=== PATIENT | female | born 1990 | race Caucasian/White ===

== ENCOUNTER 2016-09-30 14:07 | Emergency (ER) | payer MEDICAID ==
[~2016-09-30] VITALS: Ht 152.4 cm; Wt 49.0 kg
[~2016-09-30 14:07] MED LIST: HYDR-3240 PO; IBUP800T PO; OXYC-302 PO
[2016-09-30 14:43] VITALS: BP 124/86
== END 2016-09-30 15:19 | disposition home or self-care (01) ==
LOC: ED 15:00
DX: H66.001 Acute suppurative otitis media without spontaneous rupture of ear drum, right ear (principal)
CPT/HCPCS: 99283

== ENCOUNTER 2016-10-27 18:45 | Emergency (ER) | payer MEDICAID ==
[~2016-10-27] VITALS: Ht 154.9 cm; Wt 51.6 kg
[2016-10-27 18:50] VITALS: BP 121/87
[2016-10-27] MEDS ORDERED: HYDROcodone/APAP 5/325 TABLET PO ONE (19:30)
[2016-10-27] MEDS ORDERED: HYDROcodone/APAP 5/325 TABLET ONE (19:57)
== END 2016-10-27 20:06 | disposition home or self-care (01) ==
LOC: ED 20:00
DX: M26.622 Arthralgia of left temporomandibular joint (principal)
CPT/HCPCS: 99283

== ENCOUNTER 2017-12-31 02:39 | Emergency (ER) | payer MEDICAID ==
[~2017-12-31] VITALS: Ht 154.9 cm; Wt 70.0 kg
[~2017-12-31 02:39] MED LIST changes: +IBUP-1223 PO; -IBUP800T PO
[2017-12-31] MEDS ORDERED: ONDANSETRON 2MG/ML, 2ML ONE (03:20)
[2017-12-31] MEDS ORDERED: MORPHINE SULFATE 4 MG/ML, 1ML ONE (03:21)
[2017-12-31 03:25] LABS: MICROSCOPIC NOT IND
[2017-12-31 03:26] LABS: BASOPHILS # (AUTO) 0.04 x10^3/uL (0-0.1); BASOPHILS % (AUTO) 0 % (0-1); EOSINOPHILS # (AUTO) 0.16 x10^3/uL (0-0.4); EOSINOPHILS % (AUTO) 2 % (1-7); LYMPHOCYTES # (AUTO) 3.55 x10^3/uL (1-3.4); LYMPHOCYTES % (AUTO) 38 % (22-44); MD NO; MEAN CORPUSCULAR HEMOGLOBIN 32.2 pg (27.0-34.8); MEAN CORPUSCULAR HGB CONC 34.7 g/dL (32.4-35.8); MEAN CORPUSCULAR VOLUME 92.7 fL (80-100); MEAN PLATELET VOLUME 6.9 fL (7.4-10.4); MONOCYTES # (AUTO) 0.52 x10^3/uL (0.2-0.8); MONOCYTES % (AUTO) 6 % (2-9); NEUTROPHILS % (AUTO) 54 % (42-75); PLATELET COUNT 359 x10^3/uL (130-400); RED BLOOD COUNT 4.79 x10^6/uL (3.82-5.3); RED CELL DISTRIBUTION WIDTH 13.3 % (9.6-15.2)
[2017-12-31 03:27] LABS: CULTURE INDICATED? NO
[2017-12-31] MEDS ORDERED: MORPHINE SULFATE 4 MG/ML, 1ML IVPush PRN (03:30)
[2017-12-31] MEDS ORDERED: ONDANSETRON 2MG/ML, 2ML IVPush ONE (03:30)
[2017-12-31 03:39] LABS: ALANINE AMINOTRANSFERASE 16 U/L (12-78); ALBUMIN 4.3 g/dL (3.4-5.0); ANION GAP 6 mmol/L (5-15); CALCIUM 8.8 mg/dL (8.5-10.1); CHLORIDE 111 mmol/L (98-107); CREATININE 0.89 mg/dL (0.55-1.02)
[2017-12-31 03:43] LABS: ALKALINE PHOSPHATASE 73 U/L (45-117); TOTAL PROTEIN 7.8 g/dL (6.4-8.2)
[2017-12-31 03:44] LABS: BILIRUBIN,TOTAL 0.5 mg/dL (0.2-1.0)
[2017-12-31 06:20] VITALS: BP 112/72
== END 2017-12-31 06:22 | disposition home or self-care (01) ==
LOC: ED 05:49
DX: R10.30 Lower abdominal pain, unspecified (principal); R10.2 Pelvic and perineal pain
CPT/HCPCS: 36415; 76830; 80053; 81003; 83690; 84703; 85025; 96374; 96375; 99285; J2405

== ENCOUNTER 2018-05-15 07:51 | Emergency (ER) | payer MEDICAID ==
[~2018-05-15] VITALS: Ht 154.9 cm; Wt 66.7 kg
[2018-05-15 08:09] VITALS: BP 106/58
== END 2018-05-15 09:31 | disposition home or self-care (01) ==
LOC: ED 09:19
DX: H57.12 Ocular pain, left eye (principal)
CPT/HCPCS: 99283

== ENCOUNTER 2018-08-30 13:09 | Emergency (ER) | payer MEDICAID ==
[~2018-08-30] VITALS: Ht 154.9 cm; Wt 55.3 kg
[2018-08-30] MEDS ORDERED: KETOROLAC 30 MG/1 ML IM ONE (13:30)
[2018-08-30] MEDS ORDERED: KETOROLAC 30 MG/1 ML ONE (13:44)
--- NOTE | 2018-08-30 14:04 | NUR ---
CXR RESULTS BACK, PT FOR RECHECK.
[2018-08-30 14:58] VITALS: BP 118/74
== END 2018-08-30 15:00 | disposition home or self-care (01) ==
LOC: ED 14:48
DX: R07.89 Other chest pain (principal); F17.200 Nicotine dependence, unspecified, uncomplicated
CPT/HCPCS: 71046; 93005; 96372; 99283; J1885

== ENCOUNTER 2018-10-11 10:18 | Emergency (ER) | payer MEDICAID ==
[~2018-10-11] VITALS: Ht 154.9 cm; Wt 59.0 kg
--- NOTE | 2018-10-11 10:35 | NUR ---
BIB [facility]. C/O right lateral chest pain tender on light palpation after coughing hard. Dx'd with "lung inflammation" 1 month ago. Patient was scheduled for appointment to establish PCP at [facility] today. EKG done. Placed on NIBP, pulse ox and conveyor monitor. Family at bedside. Will continue to monitor.
[2018-10-11] MEDS ORDERED: KETOROLAC 30 MG/1 ML ONE (10:52)
[2018-10-11 11:37] LABS: BASOPHILS # (AUTO) 0.03 x10^3/uL (0-0.1); BASOPHILS % (AUTO) 0 % (0-1); EOSINOPHILS # (AUTO) 0.09 x10^3/uL (0-0.4); EOSINOPHILS % (AUTO) 1 % (1-7); LYMPHOCYTES # (AUTO) 2.71 x10^3/uL (1-3.4); LYMPHOCYTES % (AUTO) 33 % (22-44); MD NO; MEAN CORPUSCULAR HEMOGLOBIN 32.5 pg (27.0-34.8); MEAN CORPUSCULAR HGB CONC 34.6 g/dL (32.4-35.8); MEAN CORPUSCULAR VOLUME 93.7 fL (80-100); MEAN PLATELET VOLUME 6.6 fL (7.4-10.4); MONOCYTES # (AUTO) 0.34 x10^3/uL (0.2-0.8); MONOCYTES % (AUTO) 4 % (2-9); NEUTROPHILS # (AUTO) 5.01 x10^3/uL (1.8-6.8); NEUTROPHILS % (AUTO) 61 % (42-75); PLATELET COUNT 325 x10^3/uL (130-400); RED BLOOD COUNT 4.65 x10^6/uL (3.82-5.3); RED CELL DISTRIBUTION WIDTH 13.4 % (9.6-15.2)
[2018-10-11 11:48] LABS: ALBUMIN 4.1 g/dL (3.4-5.0); ANION GAP 5 mmol/L (5-15); CALCIUM 8.6 mg/dL (8.5-10.1); CHLORIDE 109 mmol/L (98-107); CREATININE 0.82 mg/dL (0.55-1.02)
[2018-10-11 11:52] LABS: TROPONIN I < 0.015 ng/mL (0.000-0.045)
[2018-10-11] MEDS ORDERED: KETOROLAC 30 MG/1 ML IVPush ONE (12:00)
[2018-10-11 12:37] VITALS: BP 100/55
--- NOTE | 2018-10-11 12:43 | NUR ---
Patient reports some improvement after toradol, but continues to have C/O pain.
[2018-10-11] MEDS ORDERED: HYDROcodone/APAP 5/325 TABLET ONE (13:07)
--- NOTE | 2018-10-11 13:19 | NUR ---
Patient/Caregiver given discharge instructions and they have confirmed that they understand the instructions. Patient ambulatory with steady gait.
[2018-10-11] MEDS ORDERED: HYDROcodone/APAP 5/325 TABLET PO ONE (13:30)
== END 2018-10-11 13:21 | disposition home or self-care (01) ==
LOC: ED 13:15
DX: R09.1 Pleurisy (principal); F17.200 Nicotine dependence, unspecified, uncomplicated
CPT/HCPCS: 36415; 71046; 80048; 82040; 84484; 85025; 85379; 93005; 96374; 99284; J1885

== ENCOUNTER 2020-01-01 13:12 | Outpatient (CLI) | payer MEDICAID ==
[~2020-01-01] VITALS: Ht 154.9 cm; Wt 63.6 kg
[2020-01-01 13:24] VITALS: BP 106/70
[2020-01-01 14:50] LABS: MICROSCOPIC INDICATED
== END 2020-01-01 14:06 | disposition home or self-care (01) ==
LOC: LDOP 13:12
PROVIDERS: ATTEND Obstetrics & Gynecology
DX: O29.42 Spinal and epidural anesthesia induced headache during pregnancy, second trimester (principal); R51 Headache; Z3A.27 27 weeks gestation of pregnancy
CPT/HCPCS: 81001; 87077; 87086; 87186; 99211; G0463

== ENCOUNTER 2020-01-09 12:37 | Outpatient (CLI) | payer MEDICAID ==
[~2020-01-09] VITALS: Ht 154.9 cm; Wt 63.6 kg
== END 2020-01-09 13:10 | disposition home or self-care (01) ==
LOC: LDOP 12:37
PROVIDERS: ATTEND Obstetrics & Gynecology
DX: O26.893 Other specified pregnancy related conditions, third trimester (principal); M25.559 Pain in unspecified hip; Z3A.29 29 weeks gestation of pregnancy
CPT/HCPCS: 59025

== ENCOUNTER 2020-01-09 13:21 | Emergency (ER) | payer MEDICAID ==
[~2020-01-09] VITALS: Ht 162.6 cm; Wt 75.0 kg
[2020-01-09 13:26] VITALS: BP 106/75
--- NOTE | 2020-01-09 13:30 | NUR ---
Assumed care of patient. C/O right hip pain x 1 week s/p intercourse. 29 weeks and cleared by L&D. SO at bedside. VSS. Will continue to monitor.
[2020-01-09] MEDS ORDERED: HYDROcodone/APAP 5/325 TABLET PO ONE (14:00)
[2020-01-09] MEDS ORDERED: LIDODERM 5% PATCH TD ONE ×2 (14:00→14:06)
[2020-01-09] MEDS ORDERED: HYDROcodone/APAP 5/325 TABLET ONE (14:06)
--- NOTE | 2020-01-09 14:12 | NUR ---
Patient medicated per eMAR. No other needs.
--- NOTE | 2020-01-09 14:39 | NUR ---
Patient/Caregiver given discharge instructions and they have confirmed that they understand the instructions. Patient ambulatory with steady gait with crutches.
== END 2020-01-09 14:41 | disposition home or self-care (01) ==
LOC: ED 14:35
DX: O99.89 Other specified diseases and conditions complicating pregnancy, childbirth and the puerperium (principal); M25.551 Pain in right hip; F17.200 Nicotine dependence, unspecified, uncomplicated; Z3A.29 29 weeks gestation of pregnancy
CPT/HCPCS: 99283

== ENCOUNTER 2020-01-18 03:40 | Outpatient (CLI) | payer MEDICAID ==
[~2020-01-18] VITALS: Ht 154.9 cm; Wt 63.1 kg
[2020-01-18 03:43] VITALS: BP 108/81
[2020-01-18] MEDS ORDERED: LACTATED RINGERS 1,000 ML IV ONE ×2 (04:00)
[2020-01-18 04:38] LABS: MICROSCOPIC INDICATED
[2020-01-18 05:09] LABS: BASOPHILS # (AUTO) 0.06 x10^3/uL (0-0.1); BASOPHILS % (AUTO) 0 % (0-1); EOSINOPHILS # (AUTO) 0.11 x10^3/uL (0-0.4); EOSINOPHILS % (AUTO) 1 % (1-7); LYMPHOCYTES # (AUTO) 2.76 x10^3/uL (1-3.4); LYMPHOCYTES % (AUTO) 18 % (22-44); MD NO; MEAN CORPUSCULAR HEMOGLOBIN 31.5 pg (27.0-34.8); MEAN CORPUSCULAR HGB CONC 33.1 g/dL (32.4-35.8); MEAN CORPUSCULAR VOLUME 95.4 fL (80-100); MEAN PLATELET VOLUME 6.1 fL (7.4-10.4); MONOCYTES # (AUTO) 0.54 x10^3/uL (0.2-0.8); MONOCYTES % (AUTO) 4 % (2-9); NEUTROPHILS # (AUTO) 11.64 x10^3/uL (1.8-6.8); NEUTROPHILS % (AUTO) 77 % (42-75); PLATELET COUNT 708 x10^3/uL (130-400); RED BLOOD COUNT 4.06 x10^6/uL (3.82-5.3); RED CELL DISTRIBUTION WIDTH 13.1 % (9.6-15.2)
== END 2020-01-18 23:59 | disposition home or self-care (01) ==
LOC: LDOP 03:40 → LDIP 03:57 → UNDOADMOB 03:57 → INTOOBSV 03:57 → UNDODISOB 13:07 → LDOP 23:59
PROVIDERS: ATTEND Obstetrics & Gynecology
DX: O46.93 Antepartum hemorrhage, unspecified, third trimester (principal); Z20.828 Contact with and (suspected) exposure to other viral communicable diseases; Z3A.30 30 weeks gestation of pregnancy; Z79.899 Other long term (current) drug therapy
CPT/HCPCS: 36415; 59025; 76815; 81001; 85025; 87086; 87635; 96360; 96361; J7120; G0378

== ENCOUNTER 2020-02-22 19:23 | Inpatient (IN) | payer MEDICAID ==
[~2020-02-22] VITALS: Ht 154.9 cm; Wt 63.6 kg
[2020-02-22 19:57] LABS: MICROSCOPIC INDICATED
[2020-02-22 20:03] LABS: AMPHETAMINE SCREEN, URINE Negative (Negative); BARBITURATE SCREEN, URINE Negative (Negative); BENZODIAZEPINE SCREEN, URINE Negative (Negative); CANNABINOID SCREEN, URINE Positive (Negative); COCAINE SCREEN, URINE Negative (Negative); METHADONE SCREEN, URINE Negative (Negative); OPIATE SCREEN, URINE Negative (Negative)
[2020-02-22] MEDS ORDERED: METOCLOPRAMIDE 5 MG/ML, 2ML ONE (20:15)
[2020-02-22] MEDS ORDERED: NEWBORN KIT ONE (20:20)
[2020-02-22] MEDS ORDERED: METOCLOPRAMIDE 5 MG/ML, 2ML IV ONE (20:30)
[2020-02-22] MEDS ORDERED: LACTATED RINGERS 1,000 ML IVBOLUS ONE (20:30)
[2020-02-22] MEDS ORDERED: SODIUM CITRATE/CITRIC ACID 30 ML UDC PO ONE (20:30)
[2020-02-22] MEDS ORDERED: morphine SULFATE/PF 0.5 MG/ML, 10ML ONE (20:31)
[2020-02-22] MEDS ORDERED: EPINEPHRINE 1 MG/ML, 1ML ONE (20:34)
[2020-02-22] MEDS ORDERED: OXYTOCIN 30U/ 0.9% NaCL 500ML 500 ML ONE (20:44)
[2020-02-22 20:51] LABS: BASOPHILS # (AUTO) 0.05 x10^3/uL (0-0.1); BASOPHILS % (AUTO) 0 % (0-1); EOSINOPHILS # (AUTO) 0.17 x10^3/uL (0-0.4); EOSINOPHILS % (AUTO) 1 % (1-7); LYMPHOCYTES # (AUTO) 2.67 x10^3/uL (1-3.4); LYMPHOCYTES % (AUTO) 18 % (22-44); MD NO; MEAN CORPUSCULAR HEMOGLOBIN 31.5 pg (27.0-34.8); MEAN CORPUSCULAR HGB CONC 33.4 g/dL (32.4-35.8); MEAN CORPUSCULAR VOLUME 94.2 fL (80-100); MEAN PLATELET VOLUME 6.9 fL (7.4-10.4); MONOCYTES # (AUTO) 0.76 x10^3/uL (0.2-0.8); MONOCYTES % (AUTO) 5 % (2-9); NEUTROPHILS # (AUTO) 10.87 x10^3/uL (1.8-6.8); NEUTROPHILS % (AUTO) 75 % (42-75); PLATELET COUNT 377 x10^3/uL (130-400); RED BLOOD COUNT 4.28 x10^6/uL (3.82-5.3); RED CELL DISTRIBUTION WIDTH 13.3 % (9.6-15.2)
[2020-02-22 20:59] LABS: ANION GAP 8 mmol/L (5-15); CALCIUM 9.3 mg/dL (8.5-10.1); CHLORIDE 108 mmol/L (98-107); CREATININE 0.72 mg/dL (0.55-1.02)
[2020-02-22 21:00] LABS: ALANINE AMINOTRANSFERASE 10 U/L (12-78); ALBUMIN 2.4 g/dL (3.4-5.0)
[2020-02-22 21:02] LABS: ALKALINE PHOSPHATASE 159 U/L (45-117); BILIRUBIN,TOTAL 0.3 mg/dL (0.2-1.0); TOTAL PROTEIN 6.7 g/dL (6.4-8.2)
[2020-02-22] MEDS ORDERED: WATER-INJECTION,STERILE 10 ML IV ONE (21:14)
[2020-02-22] MEDS ORDERED: PHENYLEPHRINE 10 MG/ML ONE (21:14)
[2020-02-22] MEDS ORDERED: OXYTOCIN 10 UNITS/ML, 1ML ONE (21:14)
[2020-02-22] MEDS ORDERED: CEFAZOLIN 1,000 MG ONE (21:14)
[2020-02-22] MEDS ORDERED: EPHEDRINE 50 MG/ML, 1ML ONE (21:14)
[2020-02-22] MEDS ORDERED: ONDANSETRON 2MG/ML, 2ML ONE (21:14)
[2020-02-22] MEDS ORDERED: DIPHENHYDRAMINE 50 MG/ML, 1ML ONE (21:57)
[2020-02-22] MEDS: LACTATED RINGERS 1,000 ML IV SCH ×2 (22:13→23:30)
[2020-02-22] MEDS ORDERED: CALCIUM CARBONATE 500 MG TAB.CHEW PO PRN (22:30)
[2020-02-22] MEDS ORDERED: CARBOPROST TROMETHAMINE 250 MCG/ML, 1ML IM PRN (22:30)
[2020-02-22] MEDS ORDERED: METHYLERGONOVINE 0.2 MG/ML IM PRN (22:30)
[2020-02-22] MEDS ORDERED: TRANEXAMIC ACID 100 MG/ML, 10ML IV ONE (22:30)
[2020-02-22] MEDS ORDERED: morphine SULFATE 10 MG/ML, 1ML IM PRN (22:30)
[2020-02-22] MEDS ORDERED: ACETAMINOPHEN 325 MG TABLET PO PRN ×2 (22:30)
[2020-02-22] MEDS ORDERED: ONDANSETRON 2MG/ML, 2ML IV PRN (22:30)
[2020-02-22] MEDS ORDERED: OXYcodone/APAP 5/325MG TABLET PO PRN (22:30)
[2020-02-22] MEDS: OXYTOCIN 30U/ 0.9% NaCL 500ML 500 ML IV SCH (23:30)
[2020-02-22] MEDS ORDERED: OXYcodone 5 MG/5 ML ORAL.SOL UDC ONE ×2 (23:54→23:55)
[2020-02-22] MEDS ORDERED: KETOROLAC 30 MG/1 ML ONE (23:54)
[2020-02-22] MEDS: KETOROLAC 30 MG/1 ML IV SCH (23:56)
[2020-02-23] MEDS ORDERED: OXYcodone 5 MG/5 ML ORAL.SOL UDC PO PRN
[2020-02-23] MEDS ORDERED: KETOROLAC 30 MG/1 ML IVPush PRN
[2020-02-23] MEDS ORDERED: ONDANSETRON 2MG/ML, 2ML IVPush PRN
[2020-02-23 00:45] VITALS: BP 117/75
[2020-02-23] MEDS ORDERED: PREN1TAB60 PO (01:45)
[2020-02-23 05:30] VITALS: BP 123/79
[2020-02-23] MEDS: KETOROLAC 30 MG/1 ML IV SCH ×4 (06:01→17:51)
[2020-02-23] MEDS: OXYcodone/APAP 5/325MG TABLET PO PRN ×5 (06:01→22:06)
[2020-02-23] MEDS: LACTATED RINGERS 1,000 ML IV SCH ×5 (06:13→22:13)
[2020-02-23 06:35] LABS: MEAN CORPUSCULAR HEMOGLOBIN 30.8 pg (27.0-34.8); MEAN CORPUSCULAR HGB CONC 32.8 g/dL (32.4-35.8); MEAN CORPUSCULAR VOLUME 93.8 fL (80-100); MEAN PLATELET VOLUME 6.5 fL (7.4-10.4); PLATELET COUNT 264 x10^3/uL (130-400); RED BLOOD COUNT 3.87 x10^6/uL (3.82-5.3); RED CELL DISTRIBUTION WIDTH 13.6 % (9.6-15.2)
[2020-02-23 07:23] LABS: MD YES
[2020-02-23 07:24] LABS: BAND#(MANUAL) 0.94 x10^3/uL; BANDS%(MANUAL) 6 % (0-7); EOS#(MANUAL) 0.16 x10^3/uL (0.0-0.4); EOS% (MANUAL) 1 % (1-7); LYMPH#(MANUAL) 2.03 x10^3/uL (1-3.4); LYMPHS% (MANUAL) 13 % (22-44); MONOS#(MANUAL) 0.78 x10^3/uL (0.3-2.7); MONOS% (MANUAL) 5 % (2-9)
[2020-02-23 07:25] LABS: <PLATELET ESTIMATE> ADEQUATE; <PLT MORPHOLOGY> NORMAL PLT MORPH; <RBC MORPHOLOGY> NORMAL; MYELOCYTES# (MANUAL) 0.16 x10^3/uL (0-0); MYELOCYTES% (MANUAL) 1 % (0-0); SEG#(MANUAL) 11.54 x10^3/uL (1.8-6.8); SEGS% (MANUAL) 74 % (42-75)
[2020-02-23] MEDS: OXYTOCIN 30U/ 0.9% NaCL 500ML 500 ML IV SCH ×2 (08:37→18:03)
[2020-02-23 09:06] VITALS: BP 101/64
[2020-02-23] MEDS: DOCUSATE 100 MG CAPSULE PO PRN ×2 (10:08→22:06)
[2020-02-23] MEDS: PRENATAL VIT/IRON/FA 1 EACH TABLET PO SCH (10:08)
[2020-02-23] MEDS: SIMETHICONE 80 MG CHEW TAB PO PRN ×2 (10:09→22:06)
[2020-02-23 12:23] VITALS: BP 113/79
[2020-02-23 16:28] VITALS: BP 121/81
[2020-02-23] MEDS: IBUPROFEN 600 MG TABLET PO PRN (18:22)
[2020-02-23 20:13] VITALS: BP 125/82
[2020-02-24] MEDS: IBUPROFEN 600 MG TABLET PO PRN ×4 (00:44→19:07)
[2020-02-24] MEDS: OXYcodone/APAP 5/325MG TABLET PO PRN ×6 (02:54→23:06)
[2020-02-24] MEDS: OXYTOCIN 30U/ 0.9% NaCL 500ML 500 ML IV SCH ×2 (04:13→14:13)
[2020-02-24] MEDS: LACTATED RINGERS 1,000 ML IV SCH ×5 (04:13→22:13)
[2020-02-24] MEDS: KETOROLAC 30 MG/1 ML IV SCH ×4 (06:00→16:03)
[2020-02-24] MEDS: SIMETHICONE 80 MG CHEW TAB PO PRN ×2 (06:40→19:06)
[2020-02-24 07:56] VITALS: BP 135/84
[2020-02-24] MEDS: PRENATAL VIT/IRON/FA 1 EACH TABLET PO SCH (10:43)
[2020-02-24 19:20] VITALS: BP 122/84
[2020-02-24] MEDS: DOCUSATE 100 MG CAPSULE PO PRN (20:59)
[2020-02-25] MEDS: LACTATED RINGERS 1,000 ML IV SCH ×6 (00:13→22:13)
[2020-02-25] MEDS: OXYTOCIN 30U/ 0.9% NaCL 500ML 500 ML IV SCH ×3 (00:13→20:13)
[2020-02-25] MEDS: IBUPROFEN 600 MG TABLET PO PRN ×3 (03:34→17:43)
[2020-02-25] MEDS: OXYcodone/APAP 5/325MG TABLET PO PRN ×5 (03:35→21:08)
[2020-02-25] MEDS: SIMETHICONE 80 MG CHEW TAB PO PRN ×3 (03:35→17:43)
[2020-02-25 07:25] VITALS: BP 129/80
[2020-02-25] MEDS: DOCUSATE 100 MG CAPSULE PO PRN ×2 (07:50→21:08)
[2020-02-25] MEDS: PRENATAL VIT/IRON/FA 1 EACH TABLET PO SCH (09:00)
[2020-02-25] MEDS ORDERED: MEASLES,MUMPS&RUBELLA VACC/PF 0.5 ML SQ-VACC ONE (17:00)
[2020-02-25 21:10] VITALS: BP 111/74
[2020-02-26] MEDS: SIMETHICONE 80 MG CHEW TAB PO PRN (03:05)
[2020-02-26] MEDS: IBUPROFEN 600 MG TABLET PO PRN (03:05)
[2020-02-26] MEDS: OXYcodone/APAP 5/325MG TABLET PO PRN ×2 (03:06→08:13)
[2020-02-26] MEDS: LACTATED RINGERS 1,000 ML IV SCH ×2 (06:13)
[2020-02-26] MEDS: OXYTOCIN 30U/ 0.9% NaCL 500ML 500 ML IV SCH (06:13)
[2020-02-26 07:35] VITALS: BP 147/91
[2020-02-26] MEDS ORDERED: OXYC-302 PO ×2 (07:44→07:45)
[2020-02-26] MEDS ORDERED: IBUP-1222 PO (07:44)
[2020-02-26] MEDS ORDERED: MEASLES,MUMPS&RUBELLA VACC/PF 0.5 ML SQ-VACC ONE ×2 (07:59→12:00)
[2020-02-26] MEDS: PRENATAL VIT/IRON/FA 1 EACH TABLET PO SCH (08:13)
[2020-02-26] MEDS: DOCUSATE 100 MG CAPSULE PO PRN (08:13)
== END 2020-02-26 11:40 | disposition home or self-care (01) | DRG 788 ==
LOC: LDOP 19:23 → LDIP 20:15 → 2NW 02-23 00:25
PROVIDERS: ADMIT Obstetrics & Gynecology; ATTEND Obstetrics & Gynecology
PROC: 10D00Z1 Extraction of Products of Conception, Low, Open Approach (ICD-10-PCS; principal; 2020-02-22)
DX: O60.14X0 Preterm labor third trimester with preterm delivery third trimester, not applicable or unspecified (principal); O34.211 Maternal care for low transverse scar from previous cesarean delivery; Z3A.35 35 weeks gestation of pregnancy; Z37.0 Single live birth; Z20.828 Contact with and (suspected) exposure to other viral communicable diseases
CPT/HCPCS: 36415; 80053; 80307; 81001; 85025; 86592; 86850; 86900; 87086; 87635; G0378; J0171; J0690; J1885; J2274; J2405; J1200; J2370; J2590; J2765; J7120

== ENCOUNTER 2020-10-07 23:20 | Emergency (ER) | payer MEDICAID ==
[~2020-10-07] VITALS: Ht 154.9 cm; Wt 52.8 kg
[~2020-10-07 23:20] MED LIST changes: +HYDR-2214 PO; -HYDR-3240 PO; +IBUP-1222 PO; -OXYC-302 PO; +OXYC1TAB14 PO; +PREN1TAB60 PO
[2020-10-07 23:35] VITALS: BP 122/81
[2020-10-07] MEDS ORDERED: KETOROLAC 30 MG/1 ML ONE (23:55)
[2020-10-08] MEDS ORDERED: ACETAMINOPHEN 325 MG TABLET PO ONE
[2020-10-08] MEDS ORDERED: KETOROLAC 30 MG/1 ML IM ONE
== END 2020-10-08 00:34 | disposition home or self-care (01) ==
LOC: ED 10-08 00:05
DX: K02.9 Dental caries, unspecified (principal)
CPT/HCPCS: 96372; 99283; J1885